=== PATIENT | female | born 2000 | race Caucasian/White ===

== ENCOUNTER 2025-07-25 05:08 | Emergency (ER) | payer OTHER, SELFPAY ==
[2025-07-25 05:10] VITALS: BP 143/95
[2025-07-25 05:55] LABS: Hematocrit 39.3 % (37.0-47.0); Hemoglobin 14.1 g/dL (12.0-16.0); Mean Corp Hgb Conc. 35.9 g/dL (33.0-37.0); Mean Corpuscular Volume 86.4 fL (81.0-99.0); Nucleated Red Blood Cells % 0 %; Platelet Count 354 10^3/uL (130-400); Red Cell Dist. Width 11.6 % (11.5-14.5)
[2025-07-25 06:15] LABS: HCG, Serum Qualitative Screen Negative
--- NOTE | 2025-07-25 06:16 | ED.GENMED ---
Addendum entered and electronically signed by Pablo Carballo DO 07/25/25 06:23:
EKG normal sinus rhythm at 70 bpm
Original Note:
History of Present Illness
General
Chief Complaint: Sleep Disturbances
Source: patient
Exam Limitations: none
Time Seen by Provider: 07/25/25 06:10
Nursing documentation reviewed up to this point in time: agreed with
History of Present Illness
History of Present Illness:
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
potential illness mother related with some insomnia she is with her fianc� supportive does not drink alcohol no street drugs not suicidal
Past History
Past History
ED Past Medical History: Psychiatric
ED Past Surgical History: None
Social History
Tobacco: Non-smoker
Alcohol: None
Drug: None
Personal: Single
Living: with family
Employment: Student
Review of Systems
Review of Systems
All Other Systems: Not applicable
Constitutional: Reports sleep disturbance
Psychiatric: Reports anxiety; Denies suicidal
Phy Exam
Physical Exam
Physical Exam:
Physical Exam
General: no apparent distress, not acutely ill
Neck: No goiter
Heart: s1/s2 regular rate and rhythm, no murmur. equal radial pulses.
Lungs: no acute respiratory distress.
Neuro: alert and oriented. no focal neurological deficits
Skin: no rash
Psychiatric: Appears slightly anxious cooperative not hallucinating not suicidal
Extremities: no edema.
Course
Orders/Labs/Results
Orders:
Orders
07/25/25 05:33
Electrocardiogram (*1) Urgent
Reason for Study: Palpitations
EKG- Treatment ONCE
Test Result ONCE
07/25/25 05:48
Complete Blood Count/With Diff Urgent
Comprehensive Metabolic Panel Urgent
HCG, Serum Qualitative Screen Urgent
Magnesium Urgent
TSH Reflex To Free T4 Urgent
07/25/25 06:16
Lorazepam [Ativan] 1 mg PO NOW STA
07/25/25 05:48
Vital Signs
Initial and Last Documented VS:
Initial Vital Signs
Temp Pulse Resp BP Pulse Ox
98.8 F 102 18 143/95 100
07/25/25 05:10 07/25/25 05:10 07/25/25 05:10 07/25/25 05:10 07/25/25 05:10
Last Documented Vital Signs
Temp Pulse Resp BP Pulse Ox
98.8 F 102 18 143/95 100
07/25/25 05:10 07/25/25 05:10 07/25/25 05:10 07/25/25 05:10 07/25/25 05:10
MDM/Problems Addressed
Differential Diagnosis Includes:
Anxiety depression insomnia history of anxiety
MDM/Problems Addressed:
Anxiety off her SSRI
*Pulse Oximetry
SaO2: 100
Oxygen Mode of Delivery: Room air
Patient hypoxic: no
*Critical Care Note
Total Time (30-74mins, 75-104mins- exclusive of procedures): Not Applicable
Update Note
Update Note:
Update, history of anxiety some insomnia off her SSRI she would like to restart it in the meantime we will give her a few Ativan to use sparingly
ED Attending Note
-
Portions of this chart may have been created with voice recognition software.� Occasional wrong word or��sound alike� substitutions may have occurred due to the inherent limitations of voice recognition software.
Discharge Plan
Departure
Patient Disposition: Home (Routine Discharge)
Date of Disposition: 07/25/25
Time of Disposition: 06:16
Patient with high blood pressure during this ER visit?: No
Condition: Good
Discharge Problem:
Insomnia
Instructions: Insomnia (DC), Anxiety in adults - ED (DC)
Prescriptions:
New
sertraline 150 mg capsule
150 mg PO DAILY Qty: 90 5RF
Referrals:
UNKNOWN - PT DOES,NOT KNOW [Family Provider]
Interventions
Interventions:
*Risk Screen - Suicide Last Done: 07/25/25 05:10
*General Assessment Last Done: 07/25/25 05:38
*Neglect/Abuse Screening Last Done: 07/25/25 05:38
*ED COVID-19 Vaccine History Last Done: 07/25/25 05:38
*ED Influenza Vaccine History Last Done: 07/25/25 05:38
[facility] Fall Risk Assessment Tool Last Done: 07/25/25 05:38
ED-Suicide Risk Assessment Last Done: 07/25/25 05:41
ED- Neurological Assessment Last Done: 07/25/25 05:38
ED-Psychological Assessment Last Done: 07/25/25 05:38
Discharge Date and Time
Print Language: SETS[place]
[2025-07-25 06:24] LABS: ALT (SGPT) 11 U/L (0-35); AST (SGOT) 21 U/L (14-36); Albumin 4.9 g/dl (3.5-5.0); Alkaline Phosphatase 70 U/L (38-126); Blood Urea Nitrogen 7 mg/dl (7-17); Calcium 9.6 mg/dl (8.4-10.2); Carbon Dioxide 26 mmol/L (22-30); Chloride 105 mmol/L (98-107); Glucose 94 mg/dl (70-99); Magnesium 2.2 mg/dl (1.6-2.3); Potassium 3.9 mmol/L (3.5-5.1); Sodium 138 mmol/L (135-145); Total Protein 7.8 g/dl (6.3-8.2); eGFR > 60.00
[2025-07-25] MEDS: ATIVAN 1 MG PO (06:32)
== END 2025-07-25 07:18 | disposition home or self-care (01) ==
LOC: EMR 05:08
PROVIDERS: Emergency Medicine; EMERGENCY PHYSICIAN Emergency Medicine
DX: G47.00 Insomnia, unspecified (principal); F41.9 Anxiety disorder, unspecified
CPT/HCPCS: 99284; 80053; 83735; 84443; 84703; 85025; 93005

== ENCOUNTER 2025-07-26 18:26 | Emergency (ER) | payer OTHER, SELFPAY ==
[2025-07-26 18:33] VITALS: BP 98/76
[2025-07-26 19:32] VITALS: BP 107/68
[2025-07-26 20:00] VITALS: BP 111/75
--- NOTE | 2025-07-26 20:24 | ED.GENMED ---
History of Present Illness
General
Chief Complaint: Cardiac Symptoms
Source: patient
Exam Limitations: none
Time Seen by Provider: 07/26/25 19:51
Nursing documentation reviewed up to this point in time: agreed with
History of Present Illness
History of Present Illness:
Patient to the emergency department for evaluation of palpitations. She states that she has been having difficulty sleeping over the past few weeks. This afternoon she took a dose of her friend's Seroquel. After taking medication she noted
palpitations. She was brought to the emergency department by significant other for evaluation. On exam she is awake and alert, in no distress.
Past History
Past History
ED Past Medical History: Psychiatric
ED Past Surgical History: None
Social History
Tobacco: Non-smoker
Alcohol: None
Drug: None
Personal: Single
Living: with family
Employment: Student
Review of Systems
Review of Systems
Allergies reviewed?: Yes
All Other Systems: ROS reviewed and negative except as documented in HPI and ROS
Constitutional: Reports sleep disturbance
EENT: Reports no symptoms
Respiratory: Reports no symptoms
Cardiac: Reports palpitations
ABD/GI: Reports no symptoms
: Reports no symptoms
Musculoskeletal: Reports no symptoms
Skin: Reports no symptoms
Neurological: Reports no symptoms
Psychiatric: Reports anxiety
Phy Exam
General Physical Exam
General Presentation: well appearing
General age: appears stated age
General Skin: warm and dry
General Habitus: normal
General Mental: alert
Cardiovascular Exam
Cardiovascular Exam: regular rate/rhythm and no edema
Musculoskeletal Exam
Musculoskeletal Exam: full ROM and neuro vasc intact
Skin Exam
Skin Exam: normal color, warm/dry and no rash
Psychiatric Exam
Psychiatric Exam: normal mood/affect
Course
Orders/Labs/Results
Orders:
Orders
07/26/25 18:29
ECG [Electrocardiogram (*1)] Urgent
Reason for Study: Palpitations
07/26/25 18:30
EKG- Treatment ONCE
07/26/25 18:40
EKG [Electrocardiogram (*1)] Urgent
Reason for Study: Palpitations
EKG- Treatment ONCE
Vital Signs
Initial and Last Documented VS:
Initial Vital Signs
Temp Pulse Resp BP Pulse Ox
98.6 F 124 16 98/76 97
07/26/25 18:33 07/26/25 18:33 07/26/25 18:33 07/26/25 18:33 07/26/25 18:33
Last Documented Vital Signs
Temp Pulse Resp BP Pulse Ox
98.6 F 85 18 111/75 98
07/26/25 18:33 07/26/25 20:00 07/26/25 20:00 07/26/25 20:00 07/26/25 20:10
*Pulse Oximetry
SaO2: 98
Oxygen Mode of Delivery: Room air
Patient hypoxic: no
*EKG
Rate: normal
Rhythm: sinus
QRS Pattern: normal QRS
*Critical Care Note
Total Time (30-74mins, 75-104mins- exclusive of procedures): Not Applicable
Update Note
Update Note:
Patient to the emergency department for evaluation of palpitations. She reports having difficulty sleeping over the past week or so and today took a dose of her friend Rosana. Shortly after taking medication she noted palpitations. She became
scared and came to the emergency department. Her palpitations have since resolved. Vital signs are stable. EKG NSR within normal QT. Family reports she is at her baseline. Will discharge home and she will follow-up with her family doctor in the
a.m. She was instructed not to be taking medications unless they are specifically is prescribed for her and she is agreeable to this plan.
ED Attending Note
-
Portions of this chart may have been created with voice recognition software.� Occasional wrong word or��sound alike� substitutions may have occurred due to the inherent limitations of voice recognition software.
Discharge Plan
Departure
Patient Disposition: Home (Routine Discharge)
Date of Disposition: 07/26/25
Time of Disposition: 20:23
Patient with high blood pressure during this ER visit?: No
Condition: Good
Covid-19: Not Applicable
Discharge Problem:
Palpitations
Prescriptions:
No Action
sertraline 150 mg capsule
150 mg PO DAILY Qty: 90 5RF
alprazolam [Xanax] 0.25 mg tablet
0.25 mg PO HS PRN (Reason: Sleep) Qty: 10 0RF
Referrals:
UNKNOWN - PT DOES,NOT KNOW [Family Provider]
Activity Restrictions/Additional Instructions:
Follow-up with your family doctor in the a.m. Return to the emergency department immediately for any changes in/worsening of your symptoms. Do not take any medication that is not prescribed specifically for you.
Interventions
Interventions:
*Risk Screen - Suicide Last Done: 07/26/25 18:33
*General Assessment Last Done: 07/26/25 18:39
*Neglect/Abuse Screening Last Done: 07/26/25 20:08
*ED COVID-19 Vaccine History Last Done: 07/26/25 20:08
*ED Influenza Vaccine History Last Done: 07/26/25 20:08
ED-Skin Assessment Last Done: 07/26/25 20:10
ED- Pulmonary Assessment Last Done: 07/26/25 20:10
ED-EENT Assessment Last Done: 07/26/25 20:10
ED- Cardiac Assessment Last Done: 07/26/25 20:10
Discharge Date and Time
Print Language: [place]
== END 2025-07-26 20:32 | disposition home or self-care (01) ==
LOC: EMR 18:26
PROVIDERS: EMERGENCY PHYSICIAN Student in an Organized Health Care Education/Training Program
DX: R00.2 Palpitations (principal)
CPT/HCPCS: 99283; 93005